=== PATIENT | male | born 1950 | race Two or more races ===

== ENCOUNTER 2017-05-03 15:21 | Emergency (ER) | payer OTHER ==
[~2017-05-03] VITALS: Ht 172.7 cm; Wt 86.2 kg
--- NOTE | 2017-05-03 15:29 | Emergency Room Report ---
History of Present Illness General Chief Complaint: General Complaint Source: Patient, EMS Present Illness HPI Patient is a 66-year-old male sent in by surgery after abnormalities during cardiac monitoring. Patient had been undergoing surgery for his eye. He currently complains of pain to his Cintron catheter.Patient was noted to have prior procedure which was microwave prostate surgery for prostate enlargement. Patient was given propofol fentanyl and Versed for procedure and had general anesthesia with sevoflurane. The procedure was performed by Dr. Jerzy CannonPatient denies any chest pain or shortness of breath.The patient had been given IV lidocaine 100 mg by surgery Center after he developed bigeminy Allergies: Coded Allergies: No Known Allergies (Unverified , 05/03/17) Patient History Past Medical History: see triage record Reviewed Nursing Documentation: PMH: Agreed, PSxH: Agreed Nursing Documentation-PMH Hx Hypertension: Yes Hx Diabetes: Yes Review of Systems All Other Systems: negative except mentioned in HPI Physical Exam Vital Signs Date Time Temp Pulse Resp B/P (MAP) Pulse Ox O2 Delivery O2 Flow Rate FiO2 05/03/17 15:14 97.6 70 16 140/76 98 97.5 Sp02 EP Interpretation: reviewed, normal General Appearance: normal inspection, well appearing, no apparent distress, alert, GCS 15 Head: atraumatic ENT: normal ENT inspection, hearing grossly normal, normal voice Neck: normal inspection, full range of motion, supple, no bony tend Respiratory: normal inspection, lungs clear, normal breath sounds, no respiratory distress, no retraction, no wheezing Cardiovascular #1: regular rate, rhythm, no edema Gastrointestinal: normal inspection, normal bowel sounds, non tender, soft, no guarding, no hernia Genitourinary: no CVA tenderness Musculoskeletal: normal inspection, back normal, normal range of motion Neurologic: normal inspection, alert, oriented x3, responsive, manager administrative III-XII nml as tested, speech normal Psychiatric: normal inspection, judgement/insight normal, mood/affect normal Skin: normal inspection, normal color, no rash Medical Decision Making Diagnostic Impression: Primary Impression: Asymptomatic PVCs Additional Impressions: Cintron catheter in place prior to arrival History of prostate surgery ER Course Patient presented for arrhythmia. Differential diagnosis included but was not limited to acute coronary syndrome, pulmonary embolism, pneumonia, aortic dissection, shingles, pneumothorax, aortic dissection, esophageal rupture, pericarditis. Because of complexity of patient's case laboratory testing and imaging studies were ordered.Laboratory testing was unremarkable.The patient was given IV magnesium.The patient was offered inpatient observation he declined. Patient's laboratory testing was unremarkable. Patient was advised to followup with his urologist on Friday for removal as previous scheduled. Patient is advised to return if any worsening condition or if any changes in status that are concerning. This report is dictated with [email or web address] polisher helper software which may occasionally lead to discrepancies related to use of this software. Labs Test 05/03/17 16:50 White Blood Count 11.1 K/UL (4.8-10.8) Red Blood Count 4.95 M/UL (4.70-6.10) Hemoglobin 16.1 G/DL (14.2-18.0) Hematocrit 44.4 % (42.0-52.0) Mean Corpuscular Volume 90 FL (80-99) Mean Corpuscular Hemoglobin 32.6 PG (27.0-31.0) Mean Corpuscular Hemoglobin Concent 36.4 G/DL (32.0-36.0) Red Cell Distribution Width 11.3 % (11.6-14.8) Platelet Count 186 K/UL (150-450) Mean Platelet Volume 8.5 FL (6.5-10.1) Neutrophils (%) (Auto) 75.8 % (45.0-75.0) Lymphocytes (%) (Auto) 17.7 % (20.0-45.0) Monocytes (%) (Auto) 5.2 % (1.0-10.0) Eosinophils (%) (Auto) 0.7 % (0.0-3.0) Basophils (%) (Auto) 0.7 % (0.0-2.0) Urine Color Pale yellow Urine Appearance Clear Urine pH 8 (4.5-8.0) Urine Specific [place] 1.010 (1.005-1.035) Urine Protein 1+ (NEGATIVE) Urine Glucose (UA) 2+ (NEGATIVE) Urine Ketones Negative (NEGATIVE) Urine Occult Blood 1+ (NEGATIVE) Urine Nitrite Negative (NEGATIVE) Urine Bilirubin Negative (NEGATIVE) Urine Urobilinogen Normal MG/DL (0.0-1.0) Urine Leukocyte Esterase Negative (NEGATIVE) Urine RBC 2-4 /HPF (0 - 0) Urine WBC 0-2 /HPF (0 - 0) Urine Squamous Epithelial Cells None /LPF (NONE/OCC) Urine Bacteria Few /HPF (NONE) Sodium Level 135 MMOL/L (136-145) Potassium Level 3.9 MMOL/L (3.5-5.1) Chloride Level 99 MMOL/L (98-107) Carbon Dioxide Level 30 MMOL/L (21-32) Anion Gap 6 mmol/L (5-15) Blood Urea Nitrogen 11 mg/dL (7-18) Creatinine 0.7 MG/DL (0.55-1.30) Estimat Glomerular Filtration Rate > 60 mL/min (>60) Glucose Level 246 MG/DL (74-106) Calcium Level 9.1 MG/DL (8.5-10.1) Total Bilirubin 2.5 MG/DL (0.2-1.0) Direct Bilirubin 0.3 MG/DL (0.0-0.3) Aspartate Amino Transf (AST/SGOT) 20 U/L (15-37) Alanine Aminotransferase (ALT/SGPT) 31 U/L (12-78) Alkaline Phosphatase 70 U/L (46-116) Total Creatine Kinase 56 U/L (26-308) Creatine Kinase MB 1.0 NG/ML (0.0-3.6) Creatine Kinase MB Relative Index 1.7 Troponin I 0.003 ng/mL (0.000-0.056) Total Protein 6.8 G/DL (6.4-8.2) Albumin 3.9 G/DL (3.4-5.0) Globulin 2.9 g/dL Albumin/Globulin Ratio 1.3 (1.0-2.7) Last Vital Signs Date Time Temp Pulse Resp B/P (MAP) Pulse Ox O2 Delivery O2 Flow Rate FiO2 05/03/17 15:14 97.6 70 16 140/76 98 97.5 Status: improved Disposition: HOME, SELF-CARE Condition: Stable Jonathon Lal May 03, 2017 15:29
[2017-05-03 16:45] VITALS: BP 113/63
[2017-05-03 17:20] LABS: BASOPHILS % (AUTO) 0.7 % (0.0-2.0); EOSINOPHILS % (AUTO) 0.7 % (0.0-3.0); HEMATOCRIT 44.4 % (42.0-52.0); HEMOGLOBIN 16.1 G/DL (14.2-18.0); LYMPHOCYTES % (AUTO) 17.7 % (20.0-45.0); MEAN CORPUSCULAR VOLUME 90 FL (80-99); MONOCYTES % (AUTO) 5.2 % (1.0-10.0); NEUTROPHILS % (AUTO) 75.8 % (45.0-75.0); PLATELET COUNT 186 K/UL (150-450); RED BLOOD COUNT 4.95 M/UL (4.70-6.10); RED CELL DISTRIBUTION WIDTH 11.3 % (11.6-14.8); WHITE BLOOD COUNT 11.1 K/UL (4.8-10.8)
[2017-05-03 17:22] LABS: APPEARANCE,URINE CLEAR; BILIRUBIN, URINE NEGATIVE (NEGATIVE); COLOR,URINE PALE YELLOW; GLUCOSE, URINE (UA) 2+ (NEGATIVE); KETONES,URINE NEGATIVE (NEGATIVE); LEUKOCYTE ESTERASE ,URINE NEGATIVE (NEGATIVE); NITRITE,URINE NEGATIVE (NEGATIVE); PH,URINE 8 (4.5-8.0); PROTEIN,URINE 1+ (NEGATIVE); UROBILINOGEN,URINE NORMAL MG/DL (0.0-1.0)
[2017-05-03 17:37] VITALS: BP 125/72
[2017-05-03 17:39] LABS: ANION GAP 6 mmol/L (5-15); BLOOD UREA NITROGEN 11 mg/dL (7-18); CALCIUM 9.1 MG/DL (8.5-10.1); CARBON DIOXIDE 30 MMOL/L (21-32); CHLORIDE 99 MMOL/L (98-107); CREATININE 0.7 MG/DL (0.55-1.30); POTASSIUM 3.9 MMOL/L (3.5-5.1); SODIUM 135 MMOL/L (136-145)
[2017-05-03 17:52] LABS: ALANINE AMINOTRANSFERASE 31 U/L (12-78); ALBUMIN 3.9 G/DL (3.4-5.0); ALBUMIN/GLOBULIN RATIO 1.3 (1.0-2.7); ALKALINE PHOSPHATASE 70 U/L (46-116); ASPARTATE AMINO TRANSFERASE 20 U/L (15-37); BILIRUBIN,TOTAL 2.5 MG/DL (0.2-1.0); CREATINE KINASE 56 U/L (26-308)
[2017-05-03 18:01] LABS: BILIRUBIN,DIRECT 0.3 MG/DL (0.0-0.3)
[2017-05-03 18:30] VITALS: BP 122/69
[2017-05-03 18:39] VITALS: BP 122/69
--- NOTE | 2017-05-04 09:35 | Diagnostic Imaging Report ---
Indication: Reason For Exam: SOB Technique: XRAY Chest 1v Comparison: None. Findings: The cardiomediastinal silhouette is normal. The lungs are clear. There is no evidence of pleural fluid. The bones are unremarkable. Impression: Normal chest.
--- NOTE | 2017-05-04 16:13 | Cardiology Report ---
APPROVED REPORT EKG Measurement Heart [id number] Sinus rhythm with occasional premature ventricular complexes Left axis deviation Left ventricular hypertrophy with QRS widening Abnormal ECG
== END 2017-05-03 18:50 | disposition home or self-care (01) ==
LOC: EDBD 15:21 → EMR 15:30
DX: I49.3 Ventricular premature depolarization (principal); Z98.890 Other specified postprocedural states; I10 Essential (primary) hypertension; E11.9 Type 2 diabetes mellitus without complications
CPT/HCPCS: 36415; 71045; 80053; 81003; 82248; 82550; 82553; 84484; 85025; 93005; 96374; 99284